=== PATIENT | female | born 1995 | race Caucasian/White ===

== ENCOUNTER 2017-01-01 20:02 | Emergency (ER) | payer OTHER ==
[2017-01-01 20:15] VITALS: BP 95/63; PULSE 58; RESP 14; TEMP 98.2; O2SAT 97
--- NOTE | 2017-01-01 20:34 | EDPHY ---
H & P Stated Complaint: cat bite 3 days ago, redness decreased movedment of right pointer finger HPI/ROS: Chief complaint: Cat bite to right hand History of present illness: This is a 21-year-old female who presents to the emergency department for a cat bite to her right hand. This occurred 3 days ago. Since then she has had pain. She has had waxing and waning swelling and redness. Currently she feels like it is slowly improving. She denies associated signs or symptoms including no abnormal coolness or paresthesias in the hand. She is moving all digits in the hand and the wrist well. Her immunizations are up-to-date. - Personal History LMP (Females 10-55): 8-14 Days Ago Current Tetanus Diphtheria and Acellular Pertussis (TDAP): Yes Tetanus Vaccine Date: 2015 - Medical/Surgical History Hx Asthma: Yes Hx Chronic Respiratory Disease: No Hx Diabetes: No Hx Cardiac Disease: No Hx Renal Disease: No Hx Cirrhosis: No Hx Alcoholism: No Hx HIV/AIDS: No Hx Splenectomy or Spleen Trauma: No Other PMH: wisdom teeth, [employer] issues - Social History Smoking Status: Never smoked - Physical Exam Exam: General: Alert, nontoxic Skin: There is trace erythema and edema to the dorsum of the right lateral hand. No induration or fluctuance on palpation. No red streaking. Musculoskeletal: Patient is moving all digits in all joints in all martniez in the right hand without difficulty. Moving the wrist in all martinez without difficulty. Vascular: Radial pulses 2+. Capillary refill brisk in all digits of the right hand. Neurologic: Sensation intact throughout the right hand. Constitutional: Initial Vital Signs Temperature (C) 36.8 C 01/01/17 20:11 Heart Rate 58 L 01/01/17 20:11 Respiratory Rate 14 01/01/17 20:11 Blood Pressure 95/63 L 01/01/17 20:11 O2 Sat (%) 97 01/01/17 20:11 O2 Delivery Mode Room Air Allergies/Adverse Reactions: No Known Allergies Allergy (Unverified 01/01/17 20:10) Home Medications: Medication Instructions Recorded Amoxicillin/Clavulanate Pot 875 mg PO BID #14 tab 01/01/17 [Augmentin 875 MG TAB (*)] Control 01/01/17 Medical Decision Making ED Course/Re-evaluation: Patient seen under the supervision of my secondary supervising physician Dr. Holland Vernon. Patient presents to the emergency department for cat bite to her right hand. She is nontoxic. Concerning for developing infection. No evidence of complications such as abscess formation, lymphangitis or tenosynovitis. I 100 x-ray to assess for underlying injury or retained foreign body, patient has declined. She will be started on Augmentin. Home care is discussed. Return precautions are given. Patient voiced understanding and agreement with plan. Differential Diagnosis: Included but not limited to cat bite, cellulitis, abscess, infectious tenosynovitis, lymphangitis - Data Points Medications Given: Discontinued Medications Amoxicillin/Clavulanate Potassium (Augmentin 875mg) 875 mg PO EDNOW ONE PRN Reason: Protocol Stop: 01/01/17 20:43 Last Admin: 01/01/17 20:59 Dose: 875 mg Departure - Departure Disposition: Home, Routine, Self-Care Clinical Impression: Cat bite of hand Qualifiers: Encounter type: initial encounter Laterality: right Qualified Code(s): S61.451A - Open bite of right hand, initial encounter; W55.01XA - Bitten by cat , initial encounter Condition: Good Instructions: Animal Bite (ED), Acute Wounds (ED) Additional Instructions: Follow-up with a primary care doctor or hand doctor for recheck Take antibiotics as prescribed until finished even feeling better Perform warm water soaks or apply warm compresses as discussed If symptoms worsen or new symptoms develop return to the emergency room for recheck Referrals: NONE *PRIMARY CARE P,. [Primary Care Provider] - As per Instructions Vipin Rueda MD [Medical Doctor] - As per Instructions Prescriptions: Amoxicillin/Clavulanate Pot [Augmentin 875 MG TAB (*)] 875 mg PO BID #14 tab
[2017-01-01] MEDS ORDERED: AMOXICILLIN/CLAVULANATE POT 875/125 MG TAB PO ONE (20:42)
== END 2017-01-01 21:08 | disposition home or self-care (01) ==
LOC: EDBD 20:02
DX: S61.451A Open bite of right hand, initial encounter (principal); J45.909 Unspecified asthma, uncomplicated; W55.01XA Bitten by cat, initial encounter